=== PATIENT | female | born 1960 ===

== ENCOUNTER 2022-08-27 10:30 | Day surgery (SDC) | payer OTHER ==
[~2022-08-27] VITALS: Ht 154.9 cm; Wt 63.5 kg
[~2022-08-27 10:30] MED LIST: COZAAR50 MG PO
== END 2022-08-27 16:30 | disposition home or self-care (01) ==
LOC: SURH 10:30 → O/R 10:30 → CIR.AMB 10:30 → O/R 16:30
PROVIDERS: ATTEND Colon & Rectal Surgery
DX: N82.3 Fistula of vagina to large intestine (principal); Z88.6 Allergy status to analgesic agent; I10 Essential (primary) hypertension; Z20.822 Contact with and (suspected) exposure to COVID-19